=== PATIENT | female | born 1985 ===

== ENCOUNTER 2024-03-22 17:31 | Emergency (ER) | payer OTHER ==
[~2024-03-22] VITALS: Ht 165.1 cm; Wt 74.8 kg
[2024-03-22] MEDS ORDERED: SODIUM CHLORIDE 0.9% 1,000 ML IV ONE (18:00)
[2024-03-22] MEDS ORDERED: Ondansetron Hydrochloride 4 MG/2 ML VIAL IV ONE (18:00)
[2024-03-22] MEDS ORDERED: MORPHINE Sulfate 2 MG/ML SYR IV ONE ×2 (18:00→18:15)
[2024-03-22] MEDS ORDERED: Ketorolac Tromethamine 15 MG/ML VIAL IV ONE (18:05)
[2024-03-22 18:19] LABS: BASO # 0.1 10*3/uL (0.0-0.1); BASO % 0.6 % (0.0-1.0); EOS # 0.5 10*3/uL (0.0-0.4); EOS % 5.1 % (1.0-4.0); HEMATOCRIT 32.1 % (37.0-47.0); LYMPH # 2.7 10*3/uL (1.3-4.4); LYMPH % 26.1 % (27.0-41.0); MEAN CELL VOLUME 68.2 fl (81.0-99.0); MEAN CORPUSCULAR HGB 19.5 pg (27.0-31.0); MEAN CORPUSCULAR HGB CONC 28.7 g/dl (33.0-37.0); MEAN PLATELET VOLUME 9.7 fl (9.6-12.3); MONO # 0.4 10*3/uL (0.1-1.0); NEUT # 6.6 10*3/uL (2.3-7.9); NEUT % 63.9 % (47.0-73.0); PLATELET COUNT AUTOMATED 361 10*3/uL (130-400); RED BLOOD COUNT 4.71 10*6/uL (4.10-5.10); WHITE BLOOD COUNT 10.3 10*3/uL (4.8-10.8)
[2024-03-22 18:29] LABS: ACT PARTIAL THROMBO TIME 26.6 SECONDS (20.0-32.1)
[2024-03-22 18:36] LABS: ALKALINE PHOSPHATASE 87 U/L (46-116); BUN 12 mg/dl (9-23); CHLORIDE 106 mmol/L (98-107); POTASSIUM 3.7 mmol/L (3.4-5.1); TOTAL PROTEIN 7.6 gm/dL (6.0-8.0)
[2024-03-22 18:37] LABS: SGPT/ALT < 7 U/L (5-49)
[2024-03-22 18:39] LABS: BILIRUBIN Negative (Negative); BLOOD 3+ (Negative); CLARITY Clear (Clear); COLOR Yellow (Yellow); GLUCOSE Negative (Negative); KETONE Trace (Negative); LEUKO ESTERASE Negative (Negative); NITRITE Negative (Negative); PH 5.5 (4.5-8.0); SPECIFIC GRAVITY >= 1.030 (1.001-1.030)
[2024-03-22] MEDS ORDERED: MEGESTROL ACETATE 40 MG TAB PO ONE (18:40)
[2024-03-22] MEDS ORDERED: IRON325 M3 PO (18:47)
[2024-03-22] MEDS ORDERED: HYDROCODONE-AC1 EAC1 PO (18:47)
[2024-03-22] MEDS ORDERED: MEGACE40 MG PO (18:47)
[2024-03-22 18:53] LABS: RBC TNTC rbc/hpf (0-2)
== END 2024-03-22 18:50 | disposition home or self-care (01) ==
LOC: ED 17:31
PROVIDERS: Emergency Medicine
DX: R10.30 Lower abdominal pain, unspecified (principal); N93.8 Other specified abnormal uterine and vaginal bleeding